=== PATIENT | male | born 1990 | race Caucasian/White ===

== ENCOUNTER → 2016-07-16 | Outpatient (CLI) | payer SELFPAY | END | disposition home or self-care (01) | LOC: PTH.S 09:00 | DX: N17.9 Acute kidney failure, unspecified (principal) ==

== ENCOUNTER → 2016-07-17 | Outpatient (CLI) | payer SELFPAY | END | disposition home or self-care (01) | LOC: RAD.S 12:18 | DX: N17.9 Acute kidney failure, unspecified (principal) ==